=== PATIENT | male | born 1980 | race African-American/Black ===

== ENCOUNTER 2018-06-24 02:43 | Emergency (ER) | payer OTHER ==
[~2018-06-24] VITALS: Ht 172.7 cm; Wt 79.5 kg
[2018-06-24] MEDS ORDERED: RA M500C PO (02:54)
[2018-06-24] MEDS ORDERED: CYCL10TA PO (02:54)
[2018-06-24] MEDS ORDERED: VITA10002 PO (02:54)
--- NOTE | 2018-06-24 04:18 | REPVR ---
EXAM: CT Head Without Contrast EXAM DATE/TIME: 06/24/2018 3:44 AM CLINICAL HISTORY: 38 years old, male; Injury or trauma; Fall; Additional info: Head injury TECHNIQUE: Imaging protocol: Axial computed tomography images of the head/brain without contrast. Radiation optimization: All CT scans at this facility use at least one of these dose optimization techniques: automated exposure control; mA and/or kV adjustment per patient size (includes targeted exams where dose is matched to clinical indication); or iterative reconstruction. COMPARISON: No relevant prior studies available. FINDINGS: Brain: Normal. No hemorrhage. No significant white matter disease. No edema. Ventricles: Normal. No ventriculomegaly. Bones/joints: There is apparent discontinuity in the right orbital floor Sinuses: Visualized sinuses are unremarkable. No acute sinusitis. Mastoid air cells: Visualized mastoid air cells are unremarkable. No mastoid effusion. Soft tissues: There is significant right periorbital soft tissue swelling. The right globe and lens are intact. IMPRESSION: 1. No CT evidence of intracranial hemorrhage, mass effect or midline shift. 2. Significant right periorbital soft tissue swelling with apparent discontinuity in the right orbital floor. Whether this is artifactual due to volume averaging or significant orbital floor fracture cannot be excluded. Correlation with CT of the orbits is suggested. Electronically signed by: Marco A Hyatt On 06/24/2018 04:18:19 AM
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
[2018-06-24] MEDS: NORCO, ANEXSIA 5/325MG TABLET (HYDROcodone/ACETAMINOPHEN) PO ONE (06:34)
[2018-06-24] MEDS: DERMABOND TOPICAL SKIN ADHESIVE TOP ONE (06:59)
[2018-06-24] MEDS ORDERED: AUGM500T34 PO (07:09)
[2018-06-24] MEDS: AUGMENTIN 875 MG TAB PO ONE (07:13)
[2018-06-24 07:14] VITALS: BP 135/80
== END 2018-06-24 07:25 | disposition home or self-care (01) ==
LOC: M ED 02:43
DX: S02.81XA Fracture of other specified skull and facial bones, right side, initial encounter for closed fracture (principal); W22.8XXA Striking against or struck by other objects, initial encounter; Y92.89 Other specified places as the place of occurrence of the external cause; Z91.013 Allergy to seafood; Z91.018 Allergy to other foods

== ENCOUNTER → 2018-10-11 | Outpatient (CLI) | payer OTHER ==
[~2018-10-11] MED LIST: ACET-907 PO; AUGM500T34 PO; BENG1CRE TOP; CYAN100049 PO; CYCL10TA PO; CYMB60CA3 PO; GNP250TA9 PO; HYDR-4570 PO; LIDO5TD TOP; MAGN400T PO; NAPR250T4 PO; RA M500C PO; RIBO400T PO; TRAZ-252 PO; VITA100T98 PO
--- NOTE | 2018-10-11 22:34 | REPVR ---
EXAM: MR Lumbar Spine Without Contrast. EXAM DATE/TIME: 10/11/2018 6:44 PM CLINICAL HISTORY: 38 years old, male; Low back pain TECHNIQUE: Imaging protocol: Multiplanar magnetic resonance images of the lumbar spine without intravenous contrast. COMPARISON: No relevant prior studies available. FINDINGS: Normal lumbar lordosis. Grade 1 retrolisthesis of L5 on S1. Alignment otherwise anatomic. Bone marrow signal normal. No MR evidence of acute fracture, dislocation or subluxation. Vertebral body heights maintained. Conus terminates at approximately the T12-L1 level. No abnormal signal within the visualized spinal cord. No fluid collection or soft tissue mass. Multilevel spondylosis, characterized by disc space narrowing, osteophytosis, shallow disc bulges and facet/ligamentous hypertrophy, most pronounced at L5-S1, where there is an associated 4 mm left parasagittal disc protrusion and annular tear. Mild mass effect on the descending left S1 nerve root. No significant spinal canal or neural foraminal stenosis. IMPRESSION: Mild spondylosis and degenerative disc disease, most notably at L5-S1, as described above. Electronically signed by: Alexis Sanchez On 10/11/2018 22:33:52 PM
== END ==
LOC: M RAD 18:06
PROVIDERS: ATTEND Family Medicine
DX: M54.5 Low back pain (principal)

== ENCOUNTER 2018-10-12 16:35 | Inpatient (IN) | payer OTHER ==
[~2018-10-12] VITALS: Ht 172.7 cm; Wt 81.8 kg
[~2018-10-12 16:35] MED LIST changes: -ACET-907 PO; -BENG1CRE TOP; -CYMB60CA3 PO; -GNP250TA9 PO; -HYDR-4570 PO; -LIDO5TD TOP; -MAGN400T PO; -NAPR250T4 PO; -RIBO400T PO; -TRAZ-252 PO; -VITA100T98 PO
[2018-10-12] MEDS ORDERED: TRAZ-252 PO (16:57)
[2018-10-12] MEDS ORDERED: MAGN400T PO (16:57)
[2018-10-12] MEDS ORDERED: CYMB60CA3 PO (17:09)
[2018-10-12] MEDS ORDERED: GNP250TA9 PO (17:09)
[2018-10-12] MEDS ORDERED: RIBO400T PO (17:09)
[2018-10-12] MEDS ORDERED: HYDR-4570 PO (17:24)
[2018-10-12 17:36] LABS: HEMATOCRIT 44.2 % (42.0-52.0); HEMOGLOBIN 13.4 g/dl (13.5-17.5); MEAN CORPUSCULAR HEMOGLOBIN 26.1 pg (27.0-33.0); MEAN CORPUSCULAR HGB CONC 30.3 g/dl (32.0-36.5); PLATELET COUNT, AUTOMATED 293 10^3/uL (150-450); RED BLOOD COUNT 5.14 10^6/uL (4.30-6.10); WHITE BLOOD COUNT 4.4 10^3/uL (4.0-10.0)
[2018-10-12 18:27] LABS: ACETAMINOPHEN LEVEL < 2.0 UG/ML (10.0-30.0); ALBUMIN 4.2 GM/DL (3.2-5.2); ALT/SGPT 31 U/L (12-78); BILIRUBIN,DIRECT 0.2 MG/DL (0.0-0.2); BILIRUBIN,TOTAL 0.5 MG/DL (0.2-1.0); BLOOD UREA NITROGEN 15 MG/DL (7-18); CALCIUM LEVEL 9.2 MG/DL (8.5-10.1); CARBON DIOXIDE LEVEL 33 MEQ/L (21-32); CHLORIDE LEVEL 99 MEQ/L (98-107); CREATININE FOR GFR 1.07 MG/DL (0.70-1.30); ETHYL ALCOHOL (ETHANOL) < 0.003 % (0.000-0.010); GLOMERULAR FILTRATION RATE > 60.0 (>60); GLUCOSE, FASTING 100 MG/DL (70-100); POTASSIUM SERUM 3.5 MEQ/L (3.5-5.1); SALICYLATE LEVEL < 1.7 MG/DL (5.0-30.0); SODIUM LEVEL 136 MEQ/L (136-145); THYROID STIMULATING HORMONE 0.197 uIU/ML (0.358-3.740); TOTAL PROTEIN 7.8 GM/DL (6.4-8.2)
[2018-10-12 18:36] LABS: AMPHETAMINES LEVEL URINE NEGATIVE (NEGATIVE); BARBITURATES URINE NEGATIVE (NEGATIVE); BENZODIAZEPINES URINE NEGATIVE (NEGATIVE); CANNABINOIDS URINE NEGATIVE (NEGATIVE); COCAINE METABOLITE URINE NEGATIVE (NEGATIVE); METHADONE URINE NEGATIVE (NEGATIVE); OPIATES URINE NEGATIVE (NEGATIVE); PHENCYCLIDINE URINE NEGATIVE (NEGATIVE)
[2018-10-12] MEDS ORDERED: VITA100T98 PO (18:50)
[2018-10-12] MEDS ORDERED: LIDO5TD TOP (18:53)
[2018-10-12] MEDS ORDERED: BENG1CRE TOP (18:53)
[2018-10-12] MEDS ORDERED: NAPR250T4 PO (18:55)
[2018-10-12] MEDS ORDERED: ACET-907 PO (18:55)
[2018-10-12] MEDS ORDERED: MOM 30ML SUSPENSION UDC PO PRN (19:00)
[2018-10-12] MEDS ORDERED: MAALOX 30 ML SUSP *UDC PO PRN (19:00)
[2018-10-12] MEDS ORDERED: ACETAMINOPHEN TAB 650MG DOSE (2X325MG) PO PRN (19:00)
[2018-10-12] MEDS ORDERED: NAPROXEN 250 MG TAB PO PRN (21:45)
[2018-10-12 22:03] VITALS: BP 135/85
[2018-10-12] MEDS: hydrOXYzine 25 MG TAB PO PRN (22:05)
[2018-10-12] MEDS: traZODone 50 MG TAB PO PRN (22:05)
[2018-10-13 06:40] VITALS: BP 130/66
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
[2018-10-13] MEDS: DULoxetine 30 MG CAP (CYMBALTA) PO SCH (09:50)
[2018-10-13] MEDS ORDERED: ANALGESIC BALM CRM 120 GM TOP PRN (16:15)
[2018-10-13] MEDS ORDERED: PREPARATION H OINTMENT (HEMORRHOID) TOP PRN (16:15)
[2018-10-13] MEDS: hydrOXYzine 25 MG TAB PO PRN (17:42)
[2018-10-13 18:00] VITALS: BP 109/72
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
[2018-10-13] MEDS: DICLOFENAC EPOLAMINE 1.3 % PATCH TOP SCH (22:10)
[2018-10-13] MEDS: traZODone 50 MG TAB PO PRN (22:10)
[2018-10-13] MEDS: LIDOCAINE 5% (LIDODERM) PATCH TOP PRN (22:11)
[2018-10-14 06:48] VITALS: BP 121/69
[2018-10-14] MEDS: METAMUCIL (PSYLLIUM) PACKET PO SCH ×2 (09:00→22:20)
[2018-10-14] MEDS: DICLOFENAC EPOLAMINE 1.3 % PATCH TOP SCH ×2 (09:00→22:28)
[2018-10-14] MEDS: DULoxetine 30 MG CAP (CYMBALTA) PO SCH (09:37)
[2018-10-14] MEDS: MAGNESIUM OXIDE 400 MG TAB (MAG-OX) PO SCH (09:37)
[2018-10-14] MEDS: **NOTE PATIENT COMMENT** MISC XX PRN (09:45)
[2018-10-14 18:00] VITALS: BP 131/67
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
[2018-10-14] MEDS: LIDOCAINE 5% (LIDODERM) PATCH TOP PRN (22:28)
[2018-10-14] MEDS: traZODone 50 MG TAB PO PRN (22:29)
[2018-10-15 06:51] VITALS: BP 120/66
[2018-10-15] MEDS: METAMUCIL (PSYLLIUM) PACKET PO SCH (09:00)
[2018-10-15] MEDS: MAGNESIUM OXIDE 400 MG TAB (MAG-OX) PO SCH (09:36)
[2018-10-15] MEDS: DICLOFENAC EPOLAMINE 1.3 % PATCH TOP SCH ×2 (09:37→21:00)
[2018-10-15] MEDS: DULoxetine 30 MG CAP (CYMBALTA) PO SCH (09:37)
--- NOTE | 2018-10-15 10:26 | MHIPNPDOC ---
[facility] Progress Note Progress Note DATE OF SERVICE: 10/15/18 HISTORY:Per Dr. 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 It's difficult to further ascertain these situations that could be diagnostic. As he reports, he cannot speak about the specifics of his previous deployment, however, it's difficult to see whether complex PTSD or underlying anxiety disorder has developed." VITAL SIGNS: See below. NEW TEST RESULTS: See below. CURRENT MEDICATIONS: See below. MENTAL STATUS EXAMINATION: General: Well dressed with good hygiene Speech: Spontaneous and fluid Thought processes: Linear and logical MSK: Smooth and coordinated gait, no signs of tremors or involuntary orofacial movements Thought content: Future orientated Abstract reasoning, and computation: Intact Description of associations: Intact Description of abnormal or psychotic thoughts: Denies any suicidal or homicidal ideation. Denies any auditory or visual hallucinations. Does not appear to be responding to internal stimuli. Does not appear to be endorsing any bizarre or paranoid ideation. Judgment: fair Insight: fair Orientation: Alert and orientated 3 Cognition: Grossly normal Recent and remote memory: Intact Attention span and concentration: Intact Fund of knowledge: Adequate Mood: "okay" Affect: Anxious with a constricted range. DIAGNOSES: Unspecified trauma/stressor related disorder ASSESSMENT::Pt seen and states that his mood is ok and he's looking forward to face-timing with his daughter today with staff present (has court rights to do so). States he slept well last night. Feels he is tolerating his cymbalta and is beneficial. He is attending groups and finding them helpful. He denies SI/HI, hallucinations, delusions. Pt feels safe here. MANAGEMENT PLAN: Continue Dr. Chavarria"s plan TIME SPENT: 60 minutes. Vital Signs Vital Signs Date Time Temp Pulse Resp B/P (MAP) Pulse Ox O2 Delivery O2 Flow Rate FiO2 10/15/18 06:51 99.1 63 14 120/66 (84) 10/12/18 22:03 98 10/12/18 16:36 Room Air Current Medications Current Medications Medications (Trade) Dose Ordered Sig/Germaine Route PRN Reason Start Time Stop Time Status Last Admin Dose Admin Acetaminophen (Tylenol Tab) 650 mg Q6HP PRN PO HEADACHE or DISCOMFORT 10/12/18 19:00 Al Hydrox/Mg Hydrox/Simethicone (Mylanta) 30 ml Q4HP PRN PO HEARTBURN/INDIGESTION 10/12/18 19:00 Diclofenac Epolamine (Flector 1.3%) 1 patch Q12H TOP 10/13/18 21:00 10/14/18 22:28 Duloxetine HCl (Cymbalta) 60 mg DAILY PO 10/13/18 09:00 10/15/18 09:37 Home Med (Med Rec Complete!) ASDIRECTED XX 10/12/18 19:00 10/12/18 19:00 DC Hydroxyzine HCl (Atarax) 50 mg Q4HP PRN PO ANXIETY/AGITATION 10/12/18 21:45 10/13/18 17:42 Lidocaine (Lidoderm Patch) 1 patch DAILY PRN TOP PAIN 10/12/18 21:45 10/14/18 22:28 Magnesium Hydroxide (Milk Of Magnesia) 30 ml DAILYPRN PRN PO CONSTIPATION 10/12/18 19:00 Magnesium Oxide (Mag-Ox) 400 mg DAILY PO 10/14/18 09:00 10/15/18 09:36 Menthol/Methyl Salicylate (Bengay Cream) APPLY TO LOW BACK DIRECTED BIDP PRN TOP to back for pain 10/13/18 16:15 Naproxen (Naprosyn) 500 mg BIDP PRN PO PAIN 10/12/18 21:45 Non-Formulary Medication ( See Comment Field Below ) REMOVE LIDODERM PATCH ASDIRECTED PRN XX SEE LABEL COMMENTS 10/13/18 21:00 10/14/18 09:45 Phenyleph/Shark Oil/Min Oil/Petrol (Preparation H Ointment) APPLY TO RECTAL AREA DAILYPRN PRN TOP anal pain 10/13/18 16:15 Psyllium Hydrophilic Mucilloid (Metamucil) 1 pkt DAILY PO 10/14/18 09:00 Trazodone HCl (Desyrel) 50 mg QHSP PRN PO INSOMNIA 10/12/18 19:00 10/14/18 22:29 Allergies Coded Allergies: NUTS (Verified Allergy, Unknown, 10/12/18) Pea (Verified Allergy, Unknown, 10/12/18) shellfish derived (Verified Allergy, Unknown, 10/12/18) NICK MORRIS DO Oct 15, 2018 10:26 am
[2018-10-15] MEDS: **NOTE PATIENT COMMENT** MISC XX PRN (10:38)
[2018-10-15] MEDS ORDERED: IBUPROFEN 600 MG TAB PO PRN (13:00)
[2018-10-15] MEDS ORDERED: CYCLOBENZAPRINE 10 MG TAB PO PRN (17:15)
[2018-10-15 18:31] VITALS: BP 129/60
[2018-10-15] MEDS: traZODone 50 MG TAB PO PRN (23:14)
[2018-10-16 07:01] VITALS: BP 92/54
[2018-10-16] MEDS: MAGNESIUM OXIDE 400 MG TAB (MAG-OX) PO SCH (09:00)
[2018-10-16] MEDS: DULoxetine 30 MG CAP (CYMBALTA) PO SCH (09:00)
[2018-10-16] MEDS: METAMUCIL (PSYLLIUM) PACKET PO SCH (09:00)
[2018-10-16] MEDS: DICLOFENAC EPOLAMINE 1.3 % PATCH TOP SCH ×2 (09:00→21:00)
[2018-10-16] MEDS ORDERED: PREPARATION H OINTMENT (HEMORRHOID) PR PRN (10:00)
[2018-10-16] MEDS ORDERED: traZODone 50 MG TAB PO PRN (10:00)
[2018-10-16] MEDS: hydrOXYzine 25 MG TAB PO PRN (15:50)
[2018-10-16 18:33] VITALS: BP 127/68
[2018-10-17 07:01] VITALS: BP 105/57
[2018-10-17] MEDS: METAMUCIL (PSYLLIUM) PACKET PO SCH (09:00)
[2018-10-17] MEDS: DICLOFENAC EPOLAMINE 1.3 % PATCH TOP SCH (09:54)
[2018-10-17] MEDS: MAGNESIUM OXIDE 400 MG TAB (MAG-OX) PO SCH (09:55)
[2018-10-17] MEDS: DULoxetine 30 MG CAP (CYMBALTA) PO SCH (09:55)
[2018-10-17] MEDS: LIDOCAINE 5% (LIDODERM) PATCH TOP PRN (09:56)
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
== END 2018-10-17 13:45 | disposition home or self-care (01) | DRG 882 ==
LOC: M ED 16:35 → M ED INP 18:54 → M PSY 20:20
PROVIDERS: ADMIT Psychiatry & Neurology Psychiatry; ATTEND Psychiatry & Neurology Addiction Medicine
DX: F43.10 Post-traumatic stress disorder, unspecified (principal); R45.851 Suicidal ideations; Z79.899 Other long term (current) drug therapy; Z91.010 Allergy to peanuts; Z91.013 Allergy to seafood; Z91.018 Allergy to other foods

== ENCOUNTER 2019-03-03 13:37 | Emergency (ER) | payer OTHER ==
[~2019-03-03] VITALS: Ht 172.7 cm; Wt 77.3 kg
[~2019-03-03 13:37] MED LIST changes: +ACET-907 PO; +BENG1CRE TOP; +CYMB60CA3 PO; +GNP250TA9 PO; +HYDR-4570 PO; +LIDO5TD TOP; +MAGN400T3 PO; +NAPR250T4 PO; +RIBO400T PO; +TRAZ-252 PO; +VITA100T98 PO
[2019-03-03] MEDS ORDERED: PROM25TA12 PO (14:07)
[2019-03-03] MEDS ORDERED: IBUP-1114 PO (14:07)
[2019-03-03] MEDS ORDERED: DULO1CAP5 PO (14:07)
[2019-03-03] MEDS ORDERED: [UNRECOGNIZED DRUG - CODE] TOP (14:07)
[2019-03-03] MEDS ORDERED: OMEP-218 PO (14:07)
[2019-03-03] MEDS ORDERED: SILD50TA PO (14:07)
[2019-03-03] MEDS ORDERED: HYDR-643 PO (14:07)
[2019-03-03] MEDS ORDERED: GABA-843 PO (14:07)
[2019-03-03] MEDS ORDERED: ANUS2.5C2 (14:07)
[2019-03-03] MEDS ORDERED: VOLT1GEL15 (14:07)
[2019-03-03] MEDS ORDERED: CYCL10TA PO (14:07)
[2019-03-03] MEDS ORDERED: steroid cream (14:07)
[2019-03-03] MEDS ORDERED: NS 1,000 ML IV ONE (14:30)
[2019-03-03] MEDS ORDERED: PROMETHAZINE INJ 25 MG/ML VIAL (J2550) IV ONE (14:30)
[2019-03-03] MEDS ORDERED: KETOROLAC 30 MG/ML VIAL (J1885) IV ONE (14:30)
[2019-03-03] MEDS ORDERED: diphenhydrAMINE INJ 50MG/ML VIAL (J1200) IV ONE (14:30)
--- NOTE | 2019-03-03 14:52 | REP ---
Two-view chest: 03/03/2019. Indication: Epigastric pain. Comparison: None. Findings: There is no air space consolidation. There is no pleural effusion or pneumothorax. The cardiomediastinal silhouette is unremarkable. Impression: No acute cardiopulmonary process. Electronically Signed by Jose Smith DO 03/03/2019 02:44 P
[2019-03-03 15:08] LABS: BASO % 0.3 % (0.0-1.0); HEMATOCRIT 44.8 % (42.0-52.0); HEMOGLOBIN 13.9 g/dl (13.5-17.5); LYMPH # 0.5 10^3/uL (1.5-5.0); LYMPH % 13.9 % (24.0-44.0); MEAN CORPUSCULAR HEMOGLOBIN 25.9 pg (27.0-33.0); MEAN CORPUSCULAR VOLUME 83.6 fl (80.0-96.0); MONO # 0.1 10^3/uL (0.0-0.8); MONO % 1.7 % (0.0-5.0); NEUTROPHILS # 2.9 10^3/uL (1.5-8.5); NEUTROPHILS % 83.8 % (36.0-66.0); PLATELET COUNT, AUTOMATED 254 10^3/uL (150-450); RED BLOOD COUNT 5.36 10^6/uL (4.30-6.10); WHITE BLOOD COUNT 3.5 10^3/uL (4.0-10.0)
[2019-03-03 15:36] LABS: ALBUMIN 4.2 GM/DL (3.2-5.2); ALT/SGPT 28 U/L (12-78); BILIRUBIN,DIRECT 0.2 MG/DL (0.0-0.2); BILIRUBIN,TOTAL 0.6 MG/DL (0.2-1.0); BLOOD UREA NITROGEN 16 MG/DL (7-18); CALCIUM LEVEL 9.2 MG/DL (8.5-10.1); CARBON DIOXIDE LEVEL 31 MEQ/L (21-32); CHLORIDE LEVEL 103 MEQ/L (98-107); CK-MB VALUE MASS < 1.0 NG/ML (<3.6); CPK CREATINE PHOSPHOKINASE 177 U/L (39-308); CREATININE FOR GFR 1.04 MG/DL (0.70-1.30); GLOMERULAR FILTRATION RATE > 60.0 (>60); GLUCOSE, FASTING 94 MG/DL (70-100); LIPASE 111 U/L (73-393); MB/CK RELATIVE INDEX 0.56 (< OR =4); POTASSIUM SERUM 3.8 MEQ/L (3.5-5.1); SODIUM LEVEL 140 MEQ/L (136-145); TROPONIN I < 0.02 NG/ML (< 0.10)
[2019-03-03 18:00] VITALS: BP 120/67
--- NOTE | 2019-03-03 22:48 | ECGEPIP ---
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
== END 2019-03-03 18:09 | disposition home or self-care (01) ==
LOC: M ED 13:37
DX: R51 Headache (principal); S29.011A Strain of muscle and tendon of front wall of thorax, initial encounter; X50.3XXA Overexertion from repetitive movements, initial encounter; Y92.9 Unspecified place or not applicable; Y93.E5 Activity, floor mopping and cleaning; Y99.9 Unspecified external cause status; G89.29 Other chronic pain; M54.2 Cervicalgia; M51.9 Unspecified thoracic, thoracolumbar and lumbosacral intervertebral disc disorder; F41.9 Anxiety disorder, unspecified; F32.9 Major depressive disorder, single episode, unspecified; F43.10 Post-traumatic stress disorder, unspecified; G47.00 Insomnia, unspecified; Z79.899 Other long term (current) drug therapy; Z91.018 Allergy to other foods; Z91.013 Allergy to seafood
CPT/HCPCS: 71046; 80048; 80076; 81001; 82550; 82553; 83690; 84484; 85025; 93005; 96361; 96374; 96375; 99284; J1200; J1885

== ENCOUNTER 2019-06-02 00:27 | Emergency (ER) | payer OTHER ==
[~2019-06-02] VITALS: Ht 172.7 cm; Wt 81.5 kg
[~2019-06-02 00:27] MED LIST changes: +ANUS2.5C2; +DULO1CAP5 PO; +GABA-843 PO; +HYDR-643 PO; +IBUP-1114 PO; +OMEP-218 PO; +PROM25TA12 PO; +SILD50TA PO; +VOLT1GEL15; +[UNRECOGNIZED DRUG - CODE] TOP; +steroid cream
[2019-06-02 01:37] LABS: BASO % 0.2 % (0.0-1.0); EOS % 0.2 % (0.0-3.0); HEMATOCRIT 39.7 % (42.0-52.0); HEMOGLOBIN 12.7 g/dl (13.5-17.5); LYMPH % 57.4 % (24.0-44.0); MEAN CORPUSCULAR HEMOGLOBIN 26.2 pg (27.0-33.0); MEAN CORPUSCULAR VOLUME 81.9 fl (80.0-96.0); MONO # 0.4 10^3/uL (0.0-0.8); MONO % 8.1 % (0.0-5.0); NEUTROPHILS # 1.8 10^3/uL (1.5-8.5); NEUTROPHILS % 33.7 % (36.0-66.0); PLATELET COUNT, AUTOMATED 235 10^3/uL (150-450); RED BLOOD COUNT 4.85 10^6/uL (4.30-6.10); WHITE BLOOD COUNT 5.2 10^3/uL (4.0-10.0)
[2019-06-02 02:07] LABS: CK-MB VALUE MASS < 1.0 NG/ML (<3.6); CPK CREATINE PHOSPHOKINASE 191 U/L (39-308); MB/CK RELATIVE INDEX 0.52 (< OR =4); TROPONIN I < 0.02 NG/ML (< 0.10)
[2019-06-02] MEDS ORDERED: PROAAER10 INH (02:20)
[2019-06-02] MEDS ORDERED: POTASSIUM CHLORIDE 10 MEQ SR TABLET PO ONE (02:30)
[2019-06-02 02:38] VITALS: BP 130/95
--- NOTE | 2019-06-02 08:02 | REP ---
Chest x-ray: Two views. History: Chest pain and cough . Comparison study: March 03, 2019 . Findings: The lungs are well inflated and free of infiltrate. The pleural angles are sharp. The heart size is normal. Pulmonary vasculature is not increased. No significant bony abnormality is seen. Impression: Negative chest x-ray. Electronically Signed by Junior Thomas MD 06/02/2019 07:53 A
--- NOTE | 2019-06-02 18:42 | ECGEPIP ---
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
== END 2019-06-02 02:40 | disposition home or self-care (01) ==
LOC: M ED 00:27
DX: J06.9 Acute upper respiratory infection, unspecified (principal); G89.29 Other chronic pain; M54.9 Dorsalgia, unspecified; J30.2 Other seasonal allergic rhinitis; K21.9 Gastro-esophageal reflux disease without esophagitis; F41.9 Anxiety disorder, unspecified; F32.9 Major depressive disorder, single episode, unspecified; F43.10 Post-traumatic stress disorder, unspecified; G47.00 Insomnia, unspecified; Z79.899 Other long term (current) drug therapy; Z91.018 Allergy to other foods; Z91.010 Allergy to peanuts